=== PATIENT | female | born 1980 | race American Indian/Alaskan Native ===

== ENCOUNTER 2018-06-07 14:15 | Emergency (ER) | payer BC, OTHER ==
[2018-06-07 14:27] VITALS: BMI 33.9
[2018-06-07] MEDS ORDERED: Labetalol 5 mg/ml Inj 20ML IVP STA (14:50)
[2018-06-07] MEDS ORDERED: Sodium Chloride 0.9% 1,000 ML IV STA (14:51)
--- NOTE | 2018-06-07 15:06 | ED PDOC ---
HPI: Abdomen Time Seen by Provider: 06/07/18 14:34 Chief Complaint (Nursing): Abdominal Pain Chief Complaint (Provider): Abdominal Pain History Per: Patient History/Exam Limitations: no limitations Onset/Duration Of Symptoms: Hrs Current Symptoms Are (Timing): Still Present Location Of Pain/Discomfort: RLQ Quality Of Discomfort: "Pain" Associated Symptoms: denies: Fever, Nausea, Vomiting, Diarrhea, Loss Of Appetite , Back Pain, Urinary Symptoms Exacerbating Factors: Movement Additional Complaint(s): 37 y/o female with a PMHx of HTN presents to the ED complaining of abdominal pain, onset earlier today. Patient states pain started diffusely and later developed into persistent right lower quadrant pain. Patient states pain gradually got worse and worsens with movement thus prompting today's visit. Of note, patient states she did not take her blood pressure medication today and that is why her blood pressure is elevated. Patient states she was able to eat prior to arrival. Denies nausea, vomiting, diarrhea, fever, urinary problems, vaginal bleeding and rectal bleeding. PMD: [place] Past Medical History Reviewed: Historical Data, Nursing Documentation, Vital Signs Vital Signs: Last Vital Signs Temp 99.0 F 06/07/18 19:18 Pulse 75 06/07/18 19:18 Resp 20 06/07/18 19:18 BP 165/106 H 06/07/18 19:18 Pulse Ox 100 06/08/18 04:26 - Medical History PMH: HTN, Seizures (LAST AT AGE 14 NO MEDS) Denies: Chronic Kidney Disease - Surgical History Surgical History: Other surgeries: Partial Hysterectomy - Family History Family History: States: No Known Family Hx - Home Medications Home Medications: Ambulatory Orders Medication Instructions Recorded Lisinopril 10 mg PO DAILY 05/17/16 Nebivolol HCl [Bystolic] 10 mg PO DAILY 05/17/16 Lisinopril [Prinivil] 10 mg PO DAILY 11/06/16 Nebivolol [Bystolic] 10 mg PO DAILY 11/06/16 Naproxen [Naprosyn] 500 mg PO Q12 #14 tab 06/07/18 - Allergies Allergies/Adverse Reactions: Allergies Allergy/AdvReac Type Severity Reaction Status Date / Time latex Allergy ITCHING Verified 06/07/18 14:25 Review of Systems ROS Statement: Except As Marked, All Systems Reviewed And Found Negative Gastrointestinal: Positive for: Abdominal Pain (right lower quadrant). Negative for: Nausea, Vomiting, Diarrhea Genitourinary Female: Negative for: Dysuria, Hematuria, Vaginal Bleeding Physical Exam - Reviewed Nursing Documentation Reviewed: Yes Vital Signs Reviewed: Yes - Physical Exam Appears: Positive for: Non-toxic, No Acute Distress Head Exam: Positive for: ATRAUMATIC, NORMOCEPHALIC Skin: Positive for: Normal Color, Warm, Dry Eye Exam: Positive for: Normal appearance, EOMI, PERRL Neck: Positive for: Normal, Painless ROM Cardiovascular/Chest: Positive for: Regular Rate, Rhythm. Negative for: Murmur Respiratory: Positive for: Normal Breath Sounds. Negative for: Respiratory Distress Gastrointestinal/Abdominal: Positive for: Normal Exam, Soft, Tenderness (Right lower quadrant). Negative for: Distended Back: Positive for: Normal Inspection. Negative for: L CVA Tenderness, R CVA Tenderness, Vertebral Tenderness Extremity: Positive for: Normal ROM. Negative for: Pedal Edema, Deformity Neurologic/Psych: Positive for: Alert, Oriented. Negative for: Motor/Sensory Deficits - Laboratory Results Result Diagrams: 06/07/18 15:15 06/07/18 15:15 - ECG O2 Sat by Pulse Oximetry: 100 (RA) Pulse Ox Interpretation: Normal Medical Decision Making Medical Decision Making: Time: 1458 Impression: Right lower quadrant pain Differentials include but not limited to acute appendicitis, ovarian cysts rupture, ovarian cysts torsion, kidney stones and UTI Plan: -- CT Abd/Pelvis IV Contrast -- BMP -- ED Urine -- ED Urine Dipstick -- CBC with differentials -- Sodium Chloride IV 125 mls/hr -- Trandate 20 mg IVP -- IV Insertion Time: 1715 PROCEDURE: CT Abdomen and Pelvis with contrast HISTORY: RLQ pain COMPARISON: None. TECHNIQUE: CT scan of the abdomen and pelvis was performed after administration of intravenous contrast. Oral contrast was not administered. Coronal and sagittal reformatted images were obtained. Contrast dose: 95 cc Omnipaque 300 Radiation dose: Total exam DLP = 757.47 mGy-cm. This CT exam was performed using one or more of the following dose reduction techniques: Automated exposure control, adjustment of the mA and/or kV according to patient size, and/or use of iterative reconstruction technique. FINDINGS: LOWER THORAX: The visualized lungs are clear. LIVER: Mild hepatomegaly and fatty liver. No gross lesion or ductal dilatation. GALLBLADDER AND BILE DUCTS: The gallbladder is contracted. No biliary dilatation. PANCREAS: Normal in size with homogeneous enhancement. No gross lesion or ductal dilatation. SPLEEN: Normal in size an appearance. ADRENALS: No discrete nodule. KIDNEYS AND URETERS: Normal in size with homogeneous enhancement. No hydronephrosis. No solid mass. VASCULATURE: No aortic aneurysm. BOWEL: The small bowel loops are normal in caliber. The colon is unremarkable. No bowel wall thickening or obstruction. APPENDIX: Normal appendix. No inflammatory changes in the right lower quadrant. PERITONEUM: No free fluid. No free air. LYMPH NODES: No enlarged lymph nodes. BLADDER: Unremarkable. REPRODUCTIVE: The uterus is normal in size. There is a 5.1 x 4.0 cm cysts with layering high- density material in the right ovary. BONES: No acute fracture. Within normal limits for the patient's age. OTHER FINDINGS: None. IMPRESSION: No CT evidence for acute appendicitis. 5.1 x 4.0 cm cyst with layering high density material in the right ovary, likely a hemorrhagic cyst. Correlation the pelvic ultrasound is recommended for further characterization and to evaluate for ovarian torsion. Time: 1899 Patient signed out to Dr. Canales pending US, reevaluation and disposition _ Scribe Attestation: Documented by Bianca Frank acting as a scribe for Dr. Garrett Romero MD. Provider Scribe Attestation: All medical record entries made by the Scribe were at my direction and personally dictated by me. I have reviewed the chart and agree that the record accurately reflects my personal performance of the history, physical exam, medical decision making, and the department course for this patient. I have also personally directed, reviewed, and agree with the discharge instructions and disposition. Disposition - Clinical Impression Clinical Impression: Ovarian cyst, Abdominal pain in female - Patient ED Disposition Is Patient to be Admitted: No Counseled Patient/Family Regarding: Studies Performed, Diagnosis - Disposition Disposition: Transfer of Care Disposition Time: 19:00 Condition: STABLE Prescriptions: Naproxen [Naprosyn] 500 mg PO Q12 #14 tab Instructions: Ovarian Cysts Patient Signed Over To: Vikram Canales (pending US and reevaluation)
[2018-06-07 15:24] LABS: BASO # 0.1 K/uL (0.0-0.2); BASO % 0.7 % (0.0-2.0); EOS # 0.1 K/uL (0.0-0.7); EOS % 0.9 % (0.0-4.0); HEMOGLOBIN 12.5 g/dL (12.0-16.0); LYMPH # 2.6 K/uL (1.0-4.3); LYMPH % 28.7 % (20.0-40.0); MEAN CELL VOLUME 89.8 fl (81.0-99.0); MEAN CORPUSCULAR HEMOGLOBIN 30.2 pg (27.0-31.0); MEAN CORPUSCULAR HGB CONC 33.6 g/dL (33.0-37.0); MEAN PLATELET VOLUME 7.6 fl (7.2-11.7); MONO # 0.5 K/uL (0.0-0.8); MONO % 5.7 % (0.0-10.0); NEUT # 5.9 K/uL (1.8-7.0); RBC 4.15 Mil/uL (3.80-5.20); RED CELL DISTRIBUTION WIDTH 15.1 % (11.5-14.5); WHITE BLOOD COUNT 9.2 K/uL (4.8-10.8)
[2018-06-07 15:33] LABS: BLOOD UREA NITROGEN 13 mg/dl (7-17); CALCIUM 9.1 mg/dL (8.4-10.2); GFR NON-AFRICAN AMERICAN > 60
[2018-06-07] MEDS ORDERED: Iohexol 300 100 ML IJ ONE (16:47)
[2018-06-07] MEDS ORDERED: Sodium Chloride 0.9% 50 ML IV ONE (16:47)
--- NOTE | 2018-06-07 17:17 | CT ---
Date of service: 06/07/2018 PROCEDURE: CT Abdomen and Pelvis with contrast HISTORY: RLQ pain COMPARISON: None. TECHNIQUE: CT scan of the abdomen and pelvis was performed after administration of intravenous contrast. Oral contrast was not administered. Coronal and sagittal reformatted images were obtained. Contrast dose: 95 cc Omnipaque 300 Radiation dose: Total exam DLP = 757.47 mGy-cm. This CT exam was performed using one or more of the following dose reduction techniques: Automated exposure control, adjustment of the mA and/or kV according to patient size, and/or use of iterative reconstruction technique. FINDINGS: LOWER THORAX: The visualized lungs are clear. LIVER: Mild hepatomegaly and fatty liver. No gross lesion or ductal dilatation. GALLBLADDER AND BILE DUCTS: The gallbladder is contracted. No biliary dilatation. PANCREAS: Normal in size with homogeneous enhancement. No gross lesion or ductal dilatation. SPLEEN: Normal in size an appearance. ADRENALS: No discrete nodule. KIDNEYS AND URETERS: Normal in size with homogeneous enhancement. No hydronephrosis. No solid mass. VASCULATURE: No aortic aneurysm. BOWEL: The small bowel loops are normal in caliber. The colon is unremarkable. No bowel wall thickening or obstruction. APPENDIX: Normal appendix. No inflammatory changes in the right lower quadrant. PERITONEUM: No free fluid. No free air. LYMPH NODES: No enlarged lymph nodes. BLADDER: Unremarkable. REPRODUCTIVE: The uterus is normal in size. There is a 5.1 x 4.0 cm cysts with layering high-density material in the right ovary. BONES: No acute fracture. Within normal limits for the patient's age. OTHER FINDINGS: None. IMPRESSION: No CT evidence for acute appendicitis. 5.1 x 4.0 cm cyst with layering high density material in the right ovary, likely a hemorrhagic cyst. Correlation the pelvic ultrasound is recommended for further characterization and to evaluate for ovarian torsion.
[2018-06-07 19:18] VITALS: BP 165/106; PULSE 75; RESP 20; TEMP 99; O2SAT 100
--- NOTE | 2018-06-07 19:52 | ED PDOC ---
- Laboratory Results Result Diagrams: 06/07/18 15:15 06/07/18 15:15 - ECG O2 Sat by Pulse Oximetry: 100 (RA) Pulse Ox Interpretation: Normal Medical Decision Making Medical Decision Making: Time: 1899 Patient endorsed to me by Dr. Romero pending US, reevaluation and disposition Time: 2146 EXAM: US Pelvis Complete, Transabdominal US Pelvis, Transvaginal CLINICAL HISTORY: The patient is 37 years old and is female; Pain; Pelvic pain; Prior surgery; Surgery date: 6+ months; Surgery type: Partial hysterectomy; Additional info: Right pelvic pain Facility exam id and description: Us_pelv/trans pelvis/transvag us TECHNIQUE: Real-time transabdominal and transvaginal pelvic ultrasound (complete) with image documentation. Transvaginal imaging was used for better evaluation of the endometrium and adnexa. COMPARISON: No relevant prior studies available. FINDINGS: UTERUS/CERVIX: History of partial hysterectomy. Uterus absent. RIGHT OVARY: Right ovary contains a complex 4.3 x 3.9 x 4 cm cyst with internal echoes. Follow up. LEFT OVARY: Unremarkable. FREE FLUID: No free fluid. IMPRESSION: 1. Right ovary contains a complex 4.3 x 3.9 x 4 cm cyst with internal echoes. Follow up. 2. History of partial hysterectomy. Uterus absent. EXAM: US Pelvis, Transvaginal EXAM DATE/TIME: Examination ordered 06/07/2018 5:29 PM. Image number total count reviewed 44 CLINICAL HISTORY: The patient is 37 years old and is female; Pain; Pelvic pain; Prior surgery; Surgery date: 6+ months; Surgery type: Partial hysterectomy; Additional info: Right pelvic pain Facility exam id and description: Us_pelv/trans pelvis/transvag us TECHNIQUE: Real-time transvaginal pelvic ultrasound (complete) with image documentation. Transvaginal imaging was used for better evaluation of the endometrium and adnexa. COMPARISON: No relevant prior studies available. FINDINGS: UTERUS/CERVIX: History of partial hysterectomy. Uterus absent. RIGHT OVARY: Right ovary contains a complex 4.3 x 3.9 x 4 cm cyst with internal echoes. Follow up. LEFT OVARY: Unremarkable. FREE FLUID: No free fluid. IMPRESSION: 1. Right ovary contains a complex 4.3 x 3.9 x 4 cm cyst with internal echoes. Follow up. 2. History of partial hysterectomy. Uterus absent Patient showed improvement in symptoms and diagnosed with ovarian cyst. She is advised to follow-up with [facility] , Dr. Feliciano. Scribe Attestation: Documented by Brandy Lai, acting as a scribe for Vikram Canales MD Provider Scribe Attestation: All medical record entries made by the Scribe were at my direction and personally dictated by me. I have reviewed the chart and agree that the record accurately reflects my personal performance of the history, physical exam, medical decision making, and the department course for this patient. I have also personally directed, reviewed, and agree with the discharge instructions and disposition. Disposition Discussed With : Alfredo Quesada Doctor Will See Patient In The: Office Counseled Patient/Family Regarding: Studies Performed, Diagnosis, Need For Followup, Rx Given - Clinical Impression Clinical Impression: Ovarian cyst - POA Present On Arrival: None - Disposition Disposition: Routine/Home Disposition Time: 21:30 Condition: STABLE Prescriptions: Naproxen [Naprosyn] 500 mg PO Q12 #14 tab Instructions: Ovarian Cysts Forms: [employer] (Japanese)
--- NOTE | 2018-06-08 10:04 | US ---
Date of service: 06/07/2018 HISTORY: right pelvic pain COMPARISON: CT abdomen and pelvis performed the same day. TECHNIQUE: Transvaginal pelvic ultrasound was performed. FINDINGS: UTERUS: Status post partial hysterectomy CERVIX: No cervical abnormality identified. RIGHT OVARY: Measures 5.1 x 4.3 x 5.8 cm. No solid mass. Normal flow. There is a 4.3 x 3.8 x 3.9 cm cystic layering debris. LEFT OVARY: Measures 2.5 x 1.9 x 3.0 cm. No solid mass. Normal flow. FREE FLUID: No significant free fluid noted. OTHER FINDINGS: None. IMPRESSION: Status post partial hysterectomy. No uterine tissue is demonstrated on this examination. 4.3 x 3.8 x 3.9 cm complicated/ hemorrhagic cyst in the right ovary. Follow-up ultrasound 3-6 month interval is recommended to assess stability/resolution. A preliminary report was provided by [employer] services.
== END 2018-06-07 21:50 | disposition home or self-care (01) ==
LOC: H.ER 14:15
DX: N83.201 Unspecified ovarian cyst, right side (principal); I10 Essential (primary) hypertension; Z90.711 Acquired absence of uterus with remaining cervical stump
CPT/HCPCS: 74177; 76830; 76856; 80048; 81025; 85025; 96374; 99284; J7030; Q9967